=== PATIENT | female | born 1970 | race Caucasian/White ===

== ENCOUNTER 2018-07-04 17:32 | Emergency (ER) | payer OTHER ==
[2018-07-04] MEDS ORDERED: Nitroglycerin TAB 0.4 MG* 0.4 MG TAB SL ONE (17:59)
[2018-07-04] MEDS ORDERED: NS 0.9% 1000 ML** 1,000 ML IV ONE (17:59)
[2018-07-04] MEDS ORDERED: Metoprolol Tartrate TAB* 50 mg PO ONE (18:03)
--- NOTE | 2018-07-04 18:07 | ED ---
Palpitations / Dysrhythmia - HPI Summary HPI Summary: Pt is a 48 y/o F presenting to the ED with a chief complaint of heart palpitations onset about 1 hour ago while she was at work. She reports associated shortness of breath, dizziness, lightheadedness, fast heartbeat, and chest pressure on her L anterior chest, like someone is sitting on top of her, which does not radiate. She has experienced this before, but has not been through a cardiac stress test or been in to see a continuous process coffee roaster. Her surgical hx includes two brain aneurysms which were corrected at [facility], cholecystectomy, thyroidectomy, and gastric bypass which were all done in [place], and her other pmhx includes HTN, HLD, and asthma. She is not diabetic, does not take anticoagulants, smoke, or use recreational drugs , and denies recent travel. - History of Current Complaint Chief Complaint: EDChestPainROMI Time Seen by Provider: 07/04/18 17:52 Hx Obtained From: Patient Onset/Duration: Sudden Onset, Lasting Hours, Still Present Timing: Constant Severity Initially: Moderate Severity Currently: Moderate Character: Fast Aggravating: Nothing Alleviating: Nothing Associated Signs & Symptoms: Lightheadedness, Dizzy, Chest Pain, Shortness of Breath - Allergy/Home Medications Allergies/Adverse Reactions: Allergies Allergy/AdvReac Type Severity Reaction Status Date / Time chocolate flavor Allergy Headache Verified 07/04/18 17:38 Home Medications: Home Medications Amitriptyline TAB* [Elavil TAB*] 100 mg PO BEDTIME 07/04/18 [History Confirmed 07/04/18] Aspirin TAB* [Aspirin 325 MG TAB*] 325 mg PO DAILY 07/04/18 [History Confirmed 07/04/18] Budesonide/Formote 160/4.5(NF) [Symbicort 160/4.5 (NF)] 1 puff INH BID 07/04/18 [History Confirmed 07/04/18] Butalb/Acetamin/Caff TAB* [Fioricet TAB*] 1 tab PO BID PRN 07/04/18 [History Confirmed 07/04/18] FLUoxetine CAP* [PROzac CAP*] 20 mg PO DAILY 07/04/18 [History Confirmed ] Irbesartan (NF) [Avapro (NF)] 75 mg PO DAILY 07/04/18 [History Confirmed ] Levothyroxine TAB* [Synthroid TAB*] 100 mcg PO DAILY 07/04/18 [History Confirmed 07/04/18] Metoprolol Succinate XL TAB* [Toprol XL TAB*] 50 mg PO BID 07/04/18 [History Confirmed 07/04/18] Montelukast Sodium TAB* [Singulair TAB*] 10 mg PO DAILY 07/04/18 [History Confirmed 07/04/18] Pantoprazole TAB (NF) [Protonix TAB (NF)] 20 mg PO DAILY 07/04/18 [History Confirmed 07/04/18] Promethazine TAB* [Phenergan TAB*] 25 mg PO Q8H PRN 07/04/18 [History Confirmed 07/04/18] Topiramate [Topamax] 50 mg PO BID 07/04/18 [History Confirmed 07/04/18] PMH/Surg Hx/FS Hx/Imm Hx Previously Healthy: Yes Endocrine/Hematology History: Denies: Hx Anticoagulant Therapy, Hx Diabetes Cardiovascular History: Reports: Hx Hypercholesterolemia, Hx Hypertension Respiratory History: Reports: Hx Asthma Neurological History: Reports: Other Neuro Impairments/Disorders - aneurysms - Surgical History Surgery Procedure, Year, and Place: two brain aneurysm corrective surgeries @ [facility]. cholecystectomy, thyroidectomy, gastric bypass in [place], [place]. Hx Anesthesia Reactions: No Infectious Disease History: No Infectious Disease History: Denies: Traveled Outside the [place] in Last 30 Days - Family History Known Family History: Positive: Cardiac Disease, Diabetes Negative: Hypertension - Social History Alcohol Use: Weekly Alcohol Amount: "several days a week" Hx Substance Use: No Substance Use Type: Reports: None Hx Tobacco Use: No Smoking Status (MU): Never Smoked Tobacco Review of Systems Positive: Palpitations, Chest Pain Positive: Shortness Of Breath Neurological: Other - dizziness, lightheadedness All Other Systems Reviewed And Are Negative: Yes Physical Exam - Summary Physical Exam Summary: VITAL SIGNS: Reviewed. GENERAL: Patient is a well-developed and nourished female who is lying comfortable in the stretcher. Patient is not in any acute respiratory distress. HEAD AND FACE: No signs of trauma. No ecchymosis, hematomas or skull depressions. No sinus tenderness. EYES: PERRLA, EOMI x 2, No injected conjunctiva, no nystagmus. EARS: Hearing grossly intact. Ear canals and tympanic membranes are within normal limits. MOUTH: Oropharynx within normal limits. NECK: Supple, trachea is midline, no adenopathy, no JVD, no carotid bruit, no c- spine tenderness, neck with full ROM. CHEST: Symmetric, no tenderness at palpation LUNGS: Clear to auscultation bilaterally. No wheezing or crackles. CVS: Tachycardic and hypertensive, S1 and S2 present, no murmurs or gallops appreciated. ABDOMEN: Soft, non-tender. No signs of distention. No rebound no guarding, and no masses palpated. Bowel sounds are normal. EXTREMITIES: FROM in all major joints, no edema, no cyanosis or clubbing. NEURO: Alert and oriented x 3. No acute neurological deficits. Speech is normal and follows commands. SKIN: Dry and warm Triage Information Reviewed: Yes Vital Signs On Initial Exam: Initial Vitals Temp Pulse Resp BP Pulse Ox 97.8 F 134 18 139/105 98 07/04/18 17:35 07/04/18 17:35 07/04/18 17:35 07/04/18 17:35 07/04/18 17:35 Vital Signs Reviewed: Yes Diagnostics - Vital Signs Vital Signs Temp Pulse Resp BP Pulse Ox 07/04/18 17:35 97.8 F 134 18 139/105 98 - Laboratory Result Diagrams: 07/04/18 18:00 07/04/18 18:00 Lab Statement: Any lab studies that have been ordered have been reviewed, and results considered in the medical decision making process. - Radiology CXR Radiology Interpretation Completed By: ED Physician Summary of Radiographic Findings: No acute process. Pending official radiology report. - EKG 1741 Cardiac Rate: Tachycardia - 125bpm EKG Rhythm: Sinus Tachycardia ST Segment: Normal Ectopy: None Summary of EKG Findings: EKG at 1741 shows sinus tachycardia at 125bpm with no STEMI. Course/Dx - Course Assessment/Plan: Pt is a 48 y/o F presenting to the ED with a chief complaint of heart palpitations onset about 1 hour ago while she was at work. She reports associated shortness of breath, dizziness, lightheadedness, fast heartbeat, and chest pressure on her L anterior chest, like someone is sitting on top of her, which does not radiate. She has experienced this before, but has not been through a cardiac stress test or been in to see a continuous process coffee roaster. Her surgical hx includes two brain aneurysms which were corrected at [facility] , cholecystectomy, thyroidectomy, and gastric bypass which were all done in [place], and her other pmhx includes HTN, HLD, and asthma. She is not diabetic, does not take anticoagulants, smoke, or use recreational drugs, and denies recent travel. Except for carbon dioxide of 20, PTT of 23.9, glucose of 106, alkaline phosphatase is 112, TSH is 14.7 consistent with her history of hyponatremia. 2 troponins 4 hours apart are both only 0.01, therefore I have low suspicion for acute coronary syndrome. Also the patients heart score is equal to 2 which is low suspicion for acute coronary syndrome. The patients d -dimer is negative therefore have no suspicion for a PE. I discussed all the findings and test results with the patient. Patient was instructed to return to the emergency room immediately if any of the symptoms return worsens. Plan of care was discussed with the patient and understands and agrees. All questions were answered at patient satisfaction. There were no further complaints or concerns. Lung exam before discharge: CTA B/L. Good air exchange. No wheezing or crackles heard. CVS: S1 and S2 present. No murmurs appreciated. Patient is alert and oriented x 3. Patient is hemodynamically stable. Patient will be discharged home with follow up PCP in the next 2-3 days - Diagnoses Provider Diagnoses: Atypical chest pain Discharge - Sign-Out/Discharge Documenting (check all that apply): Patient Departure Patient Received Moderate/Deep Sedation with Procedure: No - Discharge Plan Condition: Stable Disposition: HOME Referrals: Josey Mckeon MD, V. [Primary Care Provider] - Additional Instructions: Please follow up with your primary care provider within the next 2-3 days. Return to the emergency department with any new or worsening symptoms. - Billing Disposition and Condition Condition: STABLE Disposition: Home - Attestation Statements Document Initiated by Scribe: Yes Documenting Scribe: Lauren Logan Provider For Whom Amairani is Documenting (Include Credential): Darwin Lovell MD. Scribe Attestation: Lauren Silva, scribed for Darwin Lovell MD. on 07/04/18 at 2135. Scribe Documentation Reviewed: Yes Provider Attestation: The documentation as recorded by the scribe, Lauren Logan accurately reflects the service I personally performed and the decisions made by me, Darwin Lovell MD. Status of Scribe Document: Viewed
[2018-07-04 18:31] LABS: ABS Eosinophils 0.1 10^3/ul (0-0.6); ABS Lymphocytes 2.4 10^3/ul (1.0-4.8); ABS Monocytes 0.4 10^3/ul (0-0.8); ABS Neutrophils 3.9 10^3/ul (1.5-7.7); Eosinophil % 2.1 %; Hematocrit 43 % (35-47); Hemoglobin 15.1 g/dL (12.0-16.0); Mean Corpuscular HGB Conc 35 g/dL (31-36); Mean Corpuscular Hemoglobin 33 pg (27-31); Mean Corpuscular Volume 94 fL (80-97); Mean Platelet Volume 6.8 fL (7.4-10.4); Nucleated Red Blood Cells % 0.1; Platelet Count 308 10^3/uL (150-450); Red Blood Count 4.63 10^6 /uL (3.70-4.87); Red Cell Distribution Width 13 % (10.5-15); White Blood Count 6.8 10^3/uL (3.5-10.8)
[2018-07-04 18:39] LABS: Activated Partial Thrombo Time 23.9 seconds (26.0-36.3); INR 1.07 (0.82-1.09)
[2018-07-04 18:58] LABS: ALT 16 U/L (7-52); AST 17 U/L (13-39); Albumin 4.2 g/dL (3.2-5.2); Albumin/Globulin Ratio 1.3 (1-3); Alkaline Phosphatase 112 U/L (34-104); Anion Gap 9 mmol/L (2-11); BUN/Creatinine Ratio 14.5 (8-20); Blood Urea Nitrogen 11 mg/dL (6-24); CO2 Carbon Dioxide 20 mmol/L (22-32); Calcium 9.3 mg/dL (8.6-10.3); Chloride 108 mmol/L (101-111); Creatine Kinase 73 U/L (10-223); EGFR African American 99.1 (>60); EGFR Non-African American 81.9 (>60); Globulin 3.3 g/dL (2-4); Glucose 106 mg/dL (70-100); Potassium 3.5 mmol/L (3.5-5.0); Sodium 137 mmol/L (135-145); Total Protein 7.5 g/dL (6.4-8.9); Troponin I 0.01 ng/mL (<0.04)
[2018-07-04 18:59] LABS: CKMB ng/mL 1.7 ng/mL (0.6-6.3)
[2018-07-04 19:02] LABS: HCG Pregnancy < 0.60 mIU/mL
[2018-07-04 19:27] LABS: TSH (Thyroid Stimulating Horm) 14.74 mcIU/mL (0.34-5.60)
[2018-07-04 21:41] VITALS: BP 132/79
== END 2018-07-04 21:40 | disposition home or self-care (01) ==
LOC: ED 17:32
DX: R07.89 Other chest pain (principal); R00.0 Tachycardia, unspecified; Z79.82 Long term (current) use of aspirin; E78.00 Pure hypercholesterolemia, unspecified; I10 Essential (primary) hypertension; J45.909 Unspecified asthma, uncomplicated
CPT/HCPCS: 36415; 71046; 80053; 82550; 82553; 83605; 83735; 83880; 84443; 84484; 84702; 85025; 85379; 85610; 85730; 93005; 96360; 96361; 99283; A9270-GY